=== PATIENT | female | born 1975 | race Caucasian/White ===

== ENCOUNTER → 2017-04-06 | Outpatient (CLI) | payer MEDICAID ==
[~2017-04-06] MED LIST: AC325T PO; ACYC200C PO; ALBU17AE23 IH; ALPR0.5T7; ASP325TEC PO; CIPR500S2 PO; CITA20TA7; CPR500T PO; IBP800T PO; LISI-556; LORA10CA PO; METF500T61 PO; METF500T8; MONT10TA21 PO; MTF500T; MTF500T PO; NAPR-243 PO; OSLT75C PO; PANT40SU PO; PRD20T PO; PROAIR; SIMV5TAB6
[2017-04-06 11:31] LABS: MEAN PLATELET VOLUME 10.9 FL (7.4-10.4); RED BLOOD COUNT 4.76 10^6/uL (4.35-5.85); RED CELL DISTRIBUTION WIDTH 13.6 % (10.0-14.5); WHITE BLOOD COUNT 14.6 10^3/uL (4.3-11.0)
[2017-04-06 11:53] LABS: ALANINE AMINOTRANSFERASE 12 U/L (0-55); ALBUMIN 3.9 GM/DL (3.2-4.5); ANION GAP 8 MMOL/L (5-14); ASPARTATE AMINO TRANSFERASE 12 U/L (5-34); BILIRUBIN,TOTAL 0.4 MG/DL (0.1-1.0); BLOOD UREA NITROGEN 13 MG/DL (7-18); BUN/CREATININE RATIO 19; CALCIUM 8.9 MG/DL (8.5-10.1); CARBON DIOXIDE 25 MMOL/L (21-32); CHLORIDE 107 MMOL/L (98-107); CHOLESTEROL 194 MG/DL (< 200); CREATININE SERUM 0.69 MG/DL (0.60-1.30); DIRECT LDL 119 MG/DL (1-129); GFR ESTIMATED > 60; GLUCOSE 143 MG/DL (70-105); HEMOLYSIS 13 (-100-29); ICTERUS 0.4 (-100-1.9); LIPEMIA 6 (-100-49); POTASSIUM 4.1 MMOL/L (3.6-5.0); SODIUM 140 MMOL/L (135-145); TOTAL PROTEIN 6.7 GM/DL (6.4-8.2); TRIGLYCERIDES 208 MG/DL (<150); VLDL CHOLESTEROL 42 MG/DL (5-40)
[2017-04-06 11:58] LABS: TROPONIN I < 0.30 NG/ML (<0.30)
== END ==
LOC: LAB 11:12
PROVIDERS: ATTEND Family Medicine
DX: R07.89 Other chest pain (principal); J45.909 Unspecified asthma, uncomplicated
CPT/HCPCS: 36415; 80053; 80061; 83036; 84484; 85027

== ENCOUNTER 2019-01-05 13:35 | Emergency (ER) | payer MEDICAID ==
[~2019-01-05] VITALS: Ht 182.9 cm; Wt 138.8 kg
[~2019-01-05 13:35] MED LIST changes: -CITA20TA7; +CITA20TA9
[2019-01-05 14:05] LABS: CLARITY,URINE CLEAR; COLOR,URINE YELLOW; GLUCOSE, URINE (UA) 1+ (NEGATIVE); KETONES,URINE 1+ (NEGATIVE); LEUKOCYTE ESTERASE ,URINE 1+ (NEGATIVE); NITRITE,URINE NEGATIVE (NEGATIVE); PH,URINE 5 (5-9); PROTEIN,URINE 3+ (NEGATIVE); UROBILINOGEN,URINE 4 MG/DL (NORMAL)
[2019-01-05] MEDS ORDERED: NS IV 1000 ML 1,000 ML IV ONE (14:05)
[2019-01-05 14:14] LABS: BACTERIA,URINE NEGATIVE /HPF; BILIRUBIN,URINE 1+ (NEGATIVE); RBC,URINE 25-50 /HPF; SQUAMOUS EPITHELIAL CELL,UR 0-2 /HPF; WBC,URINE RARE /HPF
[2019-01-05] MEDS ORDERED: KETOROLAC 30 MG/ML VIAL IVP ONE (14:15)
[2019-01-05] MEDS ORDERED: ONDANSETRON 4 MG/2 ML (SDV) Z0FRAN IVP ONE (14:15)
--- NOTE | 2019-01-05 14:16 | ED GU-Female ---
General Chief Complaint: - Urinary Stated Complaint: LOWER BACK PAIN Nursing Triage Note: PT AMB TO TRIAGE WITH COMPLAINT OF RIGHT LOW BACK PAIN, BURBING/PAIN ON URINATION, AND BLOOD IN URINE. STATES SHE WOKE UP WITH SYMPTOMS THIS MORNING. Nursing Sepsis Screen: No Definite Risk Source: patient Exam Limitations: no limitations History of Present Illness Date Seen by Provider: Jan 05, 2019 Time Seen by Provider: 13:58 Initial Comments This 43-year-old woman presents to the emergency room with complaints of right flank and mid back pain that started early this morning. The pain is rather intense and she is vomiting with it. She also notes blood in her urine today. Initially she thought this was related to emotional distress as her mother yesterday. However, symptoms became more severe and she decided to present to the emergency room. She took Tylenol this morning without much benefit. She has no history of kidney stones. She reports a sense of urinary urgency but then cannot urinate. Allergies and Home Medications Allergies Coded Allergies: No Known Allergies (Verified Allergy, Unknown, 06/25/06) No Known Drug Allergies (Unverified , 04/22/09) Home Medications Albuterol 17 Gm Aerosol, 2 PUFF IH QID, (Reported) AND EVERY 2 HOURS IF NEEDED Cephalexin 500 Mg Capsule, 500 MG PO TID Prescribed by: YRN HUDSON on 01/05/19 1539 Hydrocodone/Acetaminophen 1 Each Tablet, 1-2 TAB PO Q6H Prescribed by: YRN HUSDON on 01/05/19 1538 Loratadine 10 Mg Capsule, 10 MG PO DAILY, (Reported) Montelukast Sodium 10 Mg Tablet, 10 MG PO DAILY, (Reported) Ondansetron 4 Mg Tab.rapdis, 4 MG SL Q4H Prescribed by: YRN HUDSON on 01/05/19 1538 Patient Home Medication List Home Medication List Reviewed: Yes Review of Systems Review of Systems Constitutional: no symptoms reported EENTM: no symptoms reported Respiratory: no symptoms reported Cardiovascular: no symptoms reported Gastrointestinal: see HPI Genitourinary: see HPI : No Musculoskeletal: see HPI Skin: no symptoms reported Psychiatric/Neurological: No Symptoms Reported Endocrine: No Symptoms Reported Hematologic/Lymphatic: No Symptoms Reported Past Rxxkdvu-Fluxjc-Swapoq Hx Past Med/Social Hx: Reviewed and Corrections made Patient Social History Alcohol Use: Denies Use Recreational Drug Use: No Smoking Status: Current Everyday Smoker Type Used: Cigars Recent Foreign Travel: No Contact w/Someone Who Travel: No Recent Infectious Disease Expo: No Recent Hopitalizations: No Immunizations Up To Date Tetanus Booster (TDap): More than 5yrs Past Medical History Surgeries: Yes (shoulder surgery, tonsillectomy, gallbladder removed, appendectomy, 2c-s) Adenoidectomy, Section, Gallbladder, Orthopedic, Tonsillectomy, Tubal Ligation Respiratory: Yes Asthma Cardiac: Yes (WAS TRIED TO BE PRESCRIBED LISINOPRIL R/T DIABETES) Neurological: No : No Reproductive Disorders: Yes Gastrointestinal: No Musculoskeletal: No Endocrine: Yes (DM TYPE II) Diabetes, Non-Insulin dep HEENT: No Cancer: No Psychosocial: No Integumentary: No Blood Disorders: No Family Medical History No Pertinent Family Hx Physical Exam Vital Signs Vital Signs - First Documented 01/05/19 13:45 Pulse 85 Resp 20 B/P (MAP) 148/100 (116) Pulse Ox 97 O2 Delivery Room Air Capillary Refill : Less Than 3 Seconds Height, Weight, BMI Height: 6'0" Weight: 306lbs. oz. 138.237868bu; BMI Method:Stated General Appearance: WD/WN, mild distress HEENT: normal ENT inspection, pharynx normal Neck: normal inspection Cardiovascular: regular rate, rhythm, no edema, no murmur Respiratory: lungs clear, normal breath sounds, no respiratory distress Gastrointestinal: non tender, soft, no organomegaly Back: normal inspection, CVA tenderness (R) Extremities: normal inspection Neurologic/Psychiatric: vp lab II-XII nml as tested, no motor/sensory deficits, alert, normal mood/affect, oriented x 3 Skin: normal color, warm/dry Progress/Results/Core Measures Suspected Sepsis Recent Fever Within 48 Hours: No Infection Criteria Present: None New/Unexplained Altered Menta: No Sepsis Screen: No Definite Risk SIRS Temperature: Pulse: 85 Respiratory Rate: 20 Laboratory Tests 01/05/19 13:53: White Blood Count 17.1H Blood Pressure 148 /100 Mean: 116 Laboratory Tests 01/05/19 13:53: Creatinine 0.94, Platelet Count 299, Total Bilirubin 0.7 Results/Orders Lab Results Laboratory Tests Test 01/05/19 13:53 01/05/19 13:55 Range/Units White Blood Count 17.1 H 4.3-11.0 10^3/uL Red Blood Count 4.85 4.35-5.85 10^6/uL Hemoglobin 14.8 11.5-16.0 G/DL Hematocrit 43 35-52 % Mean Corpuscular Volume 89 80-99 FL Mean Corpuscular Hemoglobin 31 25-34 PG Mean Corpuscular Hemoglobin Concent 34 32-36 G/DL Red Cell Distribution Width 14.0 10.0-14.5 % Platelet Count 299 130-400 10^3/uL Mean Platelet Volume 11.8 H 7.4-10.4 FL Neutrophils (%) (Auto) 80 H 42-75 % Lymphocytes (%) (Auto) 11 L 12-44 % Monocytes (%) (Auto) 8 0-12 % Eosinophils (%) (Auto) 1 0-10 % Basophils (%) (Auto) 1 0-10 % Neutrophils # (Auto) 13.7 H 1.8-7.8 X 10^3 Lymphocytes # (Auto) 1.8 1.0-4.0 X 10^3 Monocytes # (Auto) 1.3 H 0.0-1.0 X 10^3 Eosinophils # (Auto) 0.2 0.0-0.3 10^3/uL Basophils # (Auto) 0.1 0.0-0.1 10^3/uL Sodium Level 138 135-145 MMOL/L Potassium Level 4.4 3.6-5.0 MMOL/L Chloride Level 106 98-107 MMOL/L Carbon Dioxide Level 22 21-32 MMOL/L Anion Gap 10 5-14 MMOL/L Blood Urea Nitrogen 16 7-18 MG/DL Creatinine 0.94 0.60-1.30 MG/DL Estimat Glomerular Filtration Rate > 60 BUN/Creatinine Ratio 17 Glucose Level 217 H 70-105 MG/DL Calcium Level 9.8 8.5-10.1 MG/DL Corrected Calcium 9.5 8.5-10.1 MG/DL Total Bilirubin 0.7 0.1-1.0 MG/DL Aspartate Amino Transf (AST/SGOT) 22 5-34 U/L Alanine Aminotransferase (ALT/SGPT) 21 0-55 U/L Alkaline Phosphatase 100 40-136 U/L Total Protein 7.6 6.4-8.2 GM/DL Albumin 4.4 3.2-4.5 GM/DL Urine Color YELLOW Urine Clarity CLEAR Urine pH 5 5-9 Urine Specific [place] 1.030 H 1.016-1.022 Urine Protein 3+ H NEGATIVE Urine Glucose (UA) 1+ H NEGATIVE Urine Ketones 1+ H NEGATIVE Urine Nitrite NEGATIVE NEGATIVE Urine Bilirubin 1+ H NEGATIVE Urine Urobilinogen 4 H NORMAL MG/DL Urine Leukocyte Esterase 1+ H NEGATIVE Urine RBC (Auto) 5+ H NEGATIVE Urine RBC 25-50 H /HPF Urine WBC RARE /HPF Urine Squamous Epithelial Cells 0-2 /HPF Urine Crystals NONE /LPF Urine Bacteria NEGATIVE /HPF Urine Casts NONE /LPF Urine Mucus NEGATIVE /LPF Urine Culture Indicated NO My Orders Orders - YRN CASTILLO MD Ua Culture If Indicated (01/05/19 13:58) Saline Lock/Iv-Start (01/05/19 14:05) Ns Iv 1000 Ml (Sodium Chloride 0.9%) (01/05/19 14:05) Ketorolac Injection (Toradol Injection) (01/05/19 14:15) Ondansetron Injection (Zofran Injectio (01/05/19 14:15) Ct Abd/Pelvis Wo(Kidney Stone) (01/05/19 14:17) Cbc With Automated Diff (01/05/19 15:14) Comprehensive Metabolic Panel (01/05/19 15:14) Abdomen/Kub 1view (01/05/19 15:14) Manual Differential (01/05/19 13:53) Medications Given in ED Current Medications Medications Dose Ordered Sig/Zenaida Route Start Time Stop Time Status Last Admin Dose Admin Ketorolac Tromethamine 30 mg ONCE ONCE IVP 01/05/19 14:15 01/05/19 14:16 DC 01/05/19 14:14 30 MG Ondansetron HCl 8 mg ONCE ONCE IVP 01/05/19 14:15 01/05/19 14:16 DC 01/05/19 14:14 8 MG Sodium Chloride 1,000 ml @ 0 mls/hr Q0M ONCE IV 01/05/19 14:05 01/05/19 14:06 DC 01/05/19 14:14 1,000 MLS/HR Vital Signs/I&O 01/05/19 01/05/19 13:45 15:50 Pulse 85 85 Resp 20 20 B/P (MAP) 148/100 (116) 147/99 (115) Pulse Ox 97 99 O2 Delivery Room Air Room Air Capillary Refill : Less Than 3 Seconds Blood Pressure Mean: 116 Progress Note : Progress Note Patient was seen and examined. She was hydrated with IV normal saline. Symptoms were controlled with Toradol and Zofran. Hematuria was noted on urinalysis. CT was obtained showing a right ureteral calculus about 6 mm in size. Case was discussed with Dr. Birmingham and an appointment for Wednesday at 1:30 was made. She is to get a KUB before that appointment. An order for that was given. Prescriptions were provided. Patient was dismissed in much improved condition. Diagnostic Imaging Diagonstic Imaging: CT Plain Films/CT/US/NM/MRI: abdomen, pelvis Comments CT abdomen and pelvis viewed by me and report reviewed. See report below: NAME: EMPERATRIZ ESPARZA [facility] REC#: [id number] PT STATUS: REG ER : 1975 PHYSICIAN: YRN CASTILLO MD ADMIT DATE: 01/05/19/ER Draft Date of Exam:01/05/19 CT ABD/PELVIS WO(KIDNEY STONE) PROCEDURE: CT urinary tract, rule out kidney stone. TECHNIQUE: Multiple contiguous axial images were obtained through the abdomen and pelvis without the use of intravenous contrast. Auto Exposure Controls were utilized during the CT exam to meet ALARA standards for radiation dose reduction. INDICATION: Right flank pain and hematuria. No prior studies are available for comparison. The lung bases are clear. The liver is unremarkable. Gallbladder appears to be surgically absent. No biliary ductal dilatation is identified. The pancreas and spleen are unremarkable. No adrenal mass is identified. The left kidney is unremarkable. The right kidney is enlarged. Moderate right-sided hydroureteronephrosis is identified. The dilated right ureter is traced into the pelvis where there is a 6 mm calculus located at the UVJ. Moderate perinephric inflammatory stranding on the right is also seen. No intrarenal calculi are detected. The aorta is non-aneurysmal. The small and large bowel loops are normal caliber. There is no ascites. Bladder is decompressed. Uterus is unremarkable. Bony structures are nonacute. IMPRESSION: 6 mm right UVJ calculus producing moderate hydroureteronephrosis with right renal enlargement and perinephric inflammatory stranding. Dictated on workstation # [id number] Dict: 01/05/19 1440 Trans: 01/05/19 1444 [facility] [id number] Interpreted by: LETICIA SWANSON MD Diagonstic Imaging: Xray Plain Films/CT/US/NM/MRI: abdomen, pelvis Comments Abdominal x-ray viewed by me and report reviewed. See report below: NAME: EMPERATRIZ ESPARZA MED REC#: [id number] PT STATUS: REG ER : 1975 PHYSICIAN: YRN CASTILLO MD ADMIT DATE: 01/05/19/ER Signed Date of Exam: 01/05/19 ABDOMEN/KUB 1VIEW INDICATION: Kidney stone. TIME OF EXAM: 03:22 p.m. COMPARISON: Correlation is made with CT study from earlier the same day. FINDINGS: Numerous calcific densities are identified in the pelvis, majority of which represent phleboliths. The calcific density noted at the right UVJ on recent CT is visualized. This may actually indeed represent two adjacent calculi as opposed to a single 6 mm calculus, this appears to represent two approximately 3 mm calculi adjacent to one another. No other definite urinary tract calculi are seen. Bowel gas pattern is unremarkable. There are surgical clips in the right upper quadrant as well as the pelvis. IMPRESSION: Distal right ureteric calculi, as described each measuring approximately 3 mm in size and corresponding with the CT findings earlier the same day. Dictated by: Dictated on workstation # [id number] Dict: 01/05/19 1530 Trans: 01/05/19 1542 Interpreted by: LETICIA SWANSON MD Electronically signed by: LETICIA SWANSON MD 01/05/19 1542 Departure Impression Primary Impression: Right ureteral stone Additional Impressions: Hydronephrosis, right Nausea and vomiting Qualified Codes: R11.2 - Nausea with vomiting, unspecified Disposition: 01 HOME, SELF-CARE Condition: Improved Departure-Patient Inst. Decision time for Depature: 15:35 Referrals: JULI RINALDI DO (PCP/Family) Primary Care Physician ALEJA BIRMINGHAM MD Patient Instructions: Kidney Stones in Adults Add. Discharge Instructions: Drink plenty of clear liquids. Use your pain medication as prescribed. Use your nausea medication as prescribed. You have an appointment with Dr. Birmingham on January 09 at 1:30. Please obtain an abdominal x-ray at the hospital on January 09 before 12:30 so that it may be viewed at your appointment. Return to the emergency room if you are having any further problems or concerns or if your symptoms are uncontrolled. All discharge instructions reviewed with patient and/or family. Voiced understanding. Scripts Cephalexin (Keflex) 500 Mg Capsule 500 MG PO TID, #30 CAP Prov: YRN CASTILLO MD 01/05/19 Ondansetron (Ondansetron Odt) 4 Mg Tab.rapdis 4 MG SL Q4H, #20 TAB Prov: YRN CASTILLO MD 01/05/19 Hydrocodone/Acetaminophen (Hydrocodone-Acetamin 5-325 mg) 1 Each Tablet 1-2 TAB PO Q6H for PAIN-MODERATE MDD 10, #40 TAB Prov: YRN CASTILLO MD 01/05/19 Copy Copies To 1: ALEJA BIRMINGHAM MD, JOSHUA T MD Jan 05, 2019 14:16
--- NOTE | 2019-01-05 14:45 | Diagnostic Imaging Report ---
PROCEDURE: CT urinary tract, rule out kidney stone. TECHNIQUE: Multiple contiguous axial images were obtained through the abdomen and pelvis without the use of intravenous contrast. Auto Exposure Controls were utilized during the CT exam to meet ALARA standards for radiation dose reduction. INDICATION: Right flank pain and hematuria. No prior studies are available for comparison. The lung bases are clear. The liver is unremarkable. Gallbladder appears to be surgically absent. No biliary ductal dilatation is identified. The pancreas and spleen are unremarkable. No adrenal mass is identified. The left kidney is unremarkable. The right kidney is enlarged. Moderate right-sided hydroureteronephrosis is identified. The dilated right ureter is traced into the pelvis where there is a 6 mm calculus located at the UVJ. Moderate perinephric inflammatory stranding on the right is also seen. No intrarenal calculi are detected. The aorta is non-aneurysmal. The small and large bowel loops are normal caliber. There is no ascites. Bladder is decompressed. Uterus is unremarkable. Bony structures are nonacute. IMPRESSION: 6 mm right UVJ calculus producing moderate hydroureteronephrosis with right renal enlargement and perinephric inflammatory stranding. Dictated by: Dictated on workstation # [id number]
[2019-01-05 15:29] LABS: BASOPHILS # (AUTO) 0.1 10^3/uL (0.0-0.1); BASOPHILS % (AUTO) 1 % (0-10); EOSINOPHILS # (AUTO) 0.2 10^3/uL (0.0-0.3); EOSINOPHILS % (AUTO) 1 % (0-10); HEMATOCRIT 43 % (35-52); HEMOGLOBIN 14.8 G/DL (11.5-16.0); LYMPHOCYTES # (AUTO) 1.8 X 10^3 (1.0-4.0); LYMPHOCYTES % (AUTO) 11 % (12-44); MEAN CORPUSCULAR HEMOGLOBIN 31 PG (25-34); MEAN CORPUSCULAR HGB CONC 34 G/DL (32-36); MEAN CORPUSCULAR VOLUME 89 FL (80-99); MEAN PLATELET VOLUME 11.8 FL (7.4-10.4); MONOCYTES # (AUTO) 1.3 X 10^3 (0.0-1.0); MONOCYTES % (AUTO) 8 % (0-12); NEUTROPHILS # (AUTO) 13.7 X 10^3 (1.8-7.8); NEUTROPHILS % (AUTO) 80 % (42-75); PLATELET COUNT 299 10^3/uL (130-400); WHITE BLOOD COUNT 17.1 10^3/uL (4.3-11.0)
[2019-01-05] MEDS ORDERED: ONDA4TAB11 SL (15:38)
[2019-01-05] MEDS ORDERED: HYDR-3812 PO (15:38)
--- NOTE | 2019-01-05 15:38 | Diagnostic Imaging Report ---
INDICATION: Kidney stone. TIME OF EXAM: 03:22 p.m. COMPARISON: Correlation is made with CT study from earlier the same day. FINDINGS: Numerous calcific densities are identified in the pelvis, majority of which represent phleboliths. The calcific density noted at the right UVJ on recent CT is visualized. This may actually indeed represent two adjacent calculi as opposed to a single 6 mm calculus, this appears to represent two approximately 3 mm calculi adjacent to one another. No other definite urinary tract calculi are seen. Bowel gas pattern is unremarkable. There are surgical clips in the right upper quadrant as well as the pelvis. IMPRESSION: Distal right ureteric calculi, as described each measuring approximately 3 mm in size and corresponding with the CT findings earlier the same day. Dictated by: Dictated on workstation # [id number]
[2019-01-05] MEDS ORDERED: CEPH-507 PO (15:39)
[2019-01-05 15:41] LABS: ALANINE AMINOTRANSFERASE 21 U/L (0-55); ALBUMIN 4.4 GM/DL (3.2-4.5); ALKALINE PHOSPHATASE 100 U/L (40-136); BILIRUBIN,TOTAL 0.7 MG/DL (0.1-1.0); BUN/CREATININE RATIO 17; CALCIUM 9.8 MG/DL (8.5-10.1); CARBON DIOXIDE 22 MMOL/L (21-32); CHLORIDE 106 MMOL/L (98-107); CREATININE SERUM 0.94 MG/DL (0.60-1.30); GFR ESTIMATED > 60; GLUCOSE 217 MG/DL (70-105); POTASSIUM 4.4 MMOL/L (3.6-5.0); SODIUM 138 MMOL/L (135-145); TOTAL PROTEIN 7.6 GM/DL (6.4-8.2)
[2019-01-05 15:50] VITALS: BP 147/99
[2019-01-05 16:05] LABS: BAND NEUTROPHILS 0 %; BASOPHILS % (MANUAL) 0 %; EOSINOPHILS % (MANUAL) 0 %; LYMPHOCYTES % (MANUAL) 10 %; MONOCYTES % (MANUAL) 7 %; NEUTROPHILS % (MANUAL) 83 %; RBC MORPH NORMAL
== END 2019-01-05 15:50 | disposition home or self-care (01) ==
LOC: EDUNIT# 13:35 → ER 13:36
DX: N13.2 Hydronephrosis with renal and ureteral calculous obstruction (principal); R11.2 Nausea with vomiting, unspecified; J45.909 Unspecified asthma, uncomplicated; E11.9 Type 2 diabetes mellitus without complications; F17.290 Nicotine dependence, other tobacco product, uncomplicated; Z90.89 Acquired absence of other organs; Z90.49 Acquired absence of other specified parts of digestive tract; Z98.51 Tubal ligation status
CPT/HCPCS: 36415; 74018; 74176; 80053; 81000; 85007; 85027

== ENCOUNTER → 2019-01-09 | Outpatient (CLI) | payer MEDICAID ==
[~2019-01-09] MED LIST changes: +CEPH-507 PO; +HYDR-3812 PO; +LISI10TA2 PO; +METF-397 PO; +NITR-65 PO; +ONDA4TAB11 SL; +PHEN-640 PO; +RT-ALBUINH IH; +TAMS0.4C98 PO; +TRAM50TA2 PO
--- NOTE | 2019-01-09 14:52 | Diagnostic Imaging Report ---
INDICATION: Ureteral stone. TECHNIQUE: 2 supine view of the abdomen 12:33 PM CORRELATION STUDY: 01/05/2019 FINDINGS: Multiple calcifications of the pelvis are again demonstrated. This does include approximately 8 mm in length calcification of the right hemipelvis. This does appear to be slightly less dense and perhaps slightly more expanded compared to prior imaging. Location is relatively stable. Clips within the pelvis. Findings compatible with tampon present. Bowel gas pattern nonobstructive with few gas loops of bowel, may reflect mild ileus. IMPRESSION: 1. Calcification of the right hemipelvis does appear to be perhaps slightly less dense and may be slightly more fragmented from prior study. Positioning, however, is generally stable. Dictated by: Dictated on workstation # [id number]
== END ==
LOC: RAD 12:19
PROVIDERS: ATTEND Family Medicine
DX: N20.1 Calculus of ureter (principal)
CPT/HCPCS: 74018

== ENCOUNTER 2019-01-10 11:32 | Outpatient (CLI) | payer MEDICAID ==
[~2019-01-10] VITALS: Ht 182.9 cm; Wt 137.4 kg
[~2019-01-10 11:32] MED LIST changes: -LISI10TA2 PO; -METF-397 PO; -NITR-65 PO; -PHEN-640 PO; -RT-ALBUINH IH; -TAMS0.4C98 PO; -TRAM50TA2 PO
[2019-01-10 11:43] VITALS: BP 152/98
[2019-01-10] MEDS ORDERED: METF-397 PO (11:48)
[2019-01-10] MEDS ORDERED: RT-ALBUINH IH (11:48)
[2019-01-10] MEDS ORDERED: LISI10TA2 PO (11:48)
[2019-01-10 12:45] LABS: BUN/CREATININE RATIO 17; CARBON DIOXIDE 24 MMOL/L (21-32); CHLORIDE 107 MMOL/L (98-107); CREATININE SERUM 0.65 MG/DL (0.60-1.30); GFR ESTIMATED > 60; GLUCOSE 134 MG/DL (70-105); PHOSPHORUS 3.3 MG/DL (2.3-4.7); POTASSIUM 3.8 MMOL/L (3.6-5.0); SODIUM 142 MMOL/L (135-145); URIC ACID 5.4 MG/DL (2.6-7.2)
[2019-01-11] MEDS ORDERED: TRAM50TA2 PO (08:34)
[2019-01-11] MEDS ORDERED: TAMS0.4C98 PO (08:34)
[2019-01-11] MEDS ORDERED: PHEN-640 PO (08:34)
[2019-01-11] MEDS ORDERED: NITR-65 PO (08:34)
== END 2019-01-10 12:20 | disposition home or self-care (01) ==
LOC: PREOP 11:32
PROVIDERS: ATTEND Urology
DX: Z01.812 Encounter for preprocedural laboratory examination (principal); N20.1 Calculus of ureter
CPT/HCPCS: 36415; 80048; 83970; 84100; 84550; 84703; 87081

== ENCOUNTER → 2019-01-10 | Outpatient (CLI) | payer MEDICAID ==
--- NOTE | 2019-01-10 14:28 | Diagnostic Imaging Report ---
INDICATION: Right renal stone. TECHNIQUE: Single supine view of the abdomen 8:40 AM CORRELATION STUDY: 01/09/2019 FINDINGS: Multiple calcifications within the bilateral hemipelvis again demonstrated likely large phleboliths. The previously questioned area of calcification at the expected location distal right ureter is not appreciably unchanged in position and/or its appearance. Findings compatible with a tampon remaining in place. Surgical clips within the pelvis. IMPRESSION: 1. Multiple calcification in the pelvis overall generally stable. This includes the area in question of a potential distal right ureteral stone. Dictated by: Dictated on workstation # [id number]
== END ==
LOC: RAD 08:14
PROVIDERS: ATTEND Family Medicine
DX: N20.0 Calculus of kidney (principal); Z98.890 Other specified postprocedural states
CPT/HCPCS: 74018

== ENCOUNTER 2019-01-11 06:25 | Day surgery (SDC) | payer MEDICAID ==
[~2019-01-11] VITALS: Ht 182.9 cm; Wt 138.8 kg
[~2019-01-11 06:25] MED LIST changes: +LISI10TA2 PO; +METF-397 PO; +RT-ALBUINH IH
--- OUTSIDE RECORDS SUMMARY | 2019-01-11 06:32 | XMS REPORT ---
Author Author MONTANA BROWN Organization [employer] Address Unknown Phone Unavailable Care Team Providers Care Lever Operator Name Role Phone MONTANA BROWN CP Unavailable Allergies No Known Allergies Problems Problem Type Condition Code Onset Dates Condition Status Problem Major depressive disorder, recurrent episode, moderate 296.32 Active Problem Depressive disorder, not elsewhere classified 311 Active Problem Generalized anxiety disorder 300.02 Active Medications Medication Code System Code Instructions Start Date End Date Status Dosage Alprazolam [facility] [address]-00 0.5 MG Orally TAKE ONE TABLET BY MOUTH THREE TIMES DAILY NEEDED Results No Known Results Summary Purpose [employer] Submission
--- OUTSIDE RECORDS SUMMARY | 2019-01-11 06:32 | XMS REPORT ---
Author Author Migration, Doctor Organization [facility] Address Unknown Phone Unavailable Care Team Providers Care Document Coordinator Name Role Phone Migration, Doctor Unavailable Unavailable PROBLEMS Type Condition ICD9-CM Code CUN60-ZY Code Onset Dates Condition Status SNOMED Code Problem Generalized anxiety disorder F41.1 Active 33341642 Problem Major depressive disorder, recurrent, moderate F33.1 Active 76400248 Problem Depressive disorder, not elsewhere classified 311 Active 36029181 Problem Generalized anxiety disorder 300.02 Active 55089611 Problem Major depressive disorder, recurrent episode, moderate 296.32 Active 75449613 ALLERGIES No Information ENCOUNTERS Encounter Location Date Diagnosis [facility] [id number] [place] [id number] Oct, Encounter for dental examination Z01.20 [facility] [id number] [place] [address] 47404- 3769 Jan, [facility] [id number] [place] [address] 30855- 2632 Sep, Major depressive disorder, recurrent, moderate F33.1 and Generalized anxiety disorder F41.1 [facility] [id number] [place] [address] 84741- 8627 Jun, [facility] [id number] [place] [address] 25267- 5590 May, [facility] [id number] [place] [address] 88555- 8056 Apr, [facility] [id number] [place] [address] 93447- 7266 Mar, [facility] [id number] [place] [address] 59069- 6594 February, [facility] [id number] [place] [address] 64379- 2133 Jan, [facility] [id number] [address] Jan, 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 and Major depressive disorder , recurrent, moderate F33.1 [facility] [id number] [id number] 14 Jan, 2016 [facility] [id number] [place] [address] [phone]- 6930 Dec, [facility] [address] [address] 0361 Nov, [facility] [id number] [place] [address] 15901- 0373 Sep, [facility] [id number] [place] [address] 605813- 6536 Jul, [facility] [id number] [place] [address] 99757- 1574 Jun, Major depressive disorder, recurrent episode, moderate 296.32 and Generalized anxiety disorder 300.02 [facility] [address] [address] 5969 May, [facility] [address] [address] 0347 Apr, [facility] [address] [address] 4071 Mar, [facility] [address] [address] [address] February, Generalized anxiety disorder 300.02 and Major depressive disorder, recurrent episode, moderate 296.32 [facility] [address] [address] 6995 February, [facility] [address] 50[address] Jan, [facility] [address] [address] 8723 Jan, [facility] [place] [facility] [address] [id number] [place] [address] 6939 Nov, [facility] [place] [facility] [address] [id number] [place] [address] Nov, 2014 [facility] [place] [facility] [address] [id number] [place] [address]- 9421 Nov, [facility] [place] [facility] [address] [id number] [place] [address]- 6634 Nov, [facility] [place] [facility] [address] [id number] [place] [address]- 3444 Sep, [facility] [place] [facility] [address] [id number] [place] [address]- 0317 Sep, [facility] [place] [facility] [address] [id number] [place] [address]- 0159 Aug, [facility] [place] [facility] [address] [id number] [place] [address]- 3579 Aug, [facility] [place] [facility] [address] [id number] [place] [address]- 2456 Jul, [facility] [place] [facility] [address] [facility] [id number] [place] [address]- 6603 Jul, [facility] [place] [facility] [address] [id number] [place] [address]- 7554 Jun, [facility] [place] [facility] [address] [id number] [address] 9816 Jun, [facility] [place] [facility] [address] [id number] [place] [address]- 7982 May, [facility] [place] [facility] [address] [id number] [place] [address]- 5227 May, [facility] [place] [facility] [address] [facility] [id number] [place] [address]- 1775 Mar, [facility] [place] [facility] [address] [id number] [place] [address]- 5051 Mar, [facility] [place] [facility] [address] [id number] [place] [address]- 6472 Mar, [facility] [place] [facility] [address] [id number] [place] [address]- 5816 Mar, [facility] [place] [facility] [address] [id number] [place] [address]- 0086 Jan, [facility] [place] [facility] [address] [id number] [place] [address]- 3650 Jan, [facility] [place] [facility] [address] [id number] [place] [address]- 5084 Jan, [facility] [place] [facility] [address] [id number] [place] [address]- 9377 Jan, [facility] [place] [facility] [address] [id number] [place] [address]- 3580 Dec, [facility] [place] [facility] [address] [id number] [place] [address]- 3945 Dec, [facility] [place] [facility] [address] [id number] [place] [address]- 1030 Dec, [facility] [place] [facility] [address] [id number] [place] [address]- 0596 Dec, [facility] [place] [facility] [address] [id number] [place] [address]- 9497 Oct, [facility] [place] [facility] [address] [id number] [place] [address]- 4032 Oct, [facility] [place] [facility] [address] [id number] [place] [address]- 7363 Oct, [facility] [place] [facility] [address] [id number] [place] [address]- 4409 Oct, [facility] [place] [facility] [address] [id number] [place] [address]- 6812 Aug, [facility] [address] [facility] [id number] [place] [address]- 67[address] Aug, IMMUNIZATIONS No Known Immunizations SOCIAL HISTORY Never Assessed REASON FOR VISIT [facility] PLAN OF CARE VITAL SIGNS MEDICATIONS Medication Instructions Dosage Frequency Start Date End Date Duration Status Singulair 10 mg 1 Tablet by Oral route 1 time per day for asthma Nov Active Celexa 20 mg 1 tablet by Oral route 1 time per day Nov, Active Albuterol by inhalation route Oct, Active Claritin 10 mg 1 Tablet by Oral route 1 time per day for allergies Nov, Active metformin 500 mg 1 Tablet by Oral route 1 time per day Oct, Active Xanax 0.5 mg 1 tablet by Oral route 3 times per day Nov, Active RESULTS No Results PROCEDURES No Known procedures INSTRUCTIONS MEDICATIONS ADMINISTERED No Known Medications MEDICAL (GENERAL) HISTORY Type Description Date Medical History High BP Medical History Asthma Medical History Diabetes II Medical History Back Trouble Surgical History gall bladder removal Surgical History Right rotator cuff Surgical History T & A Surgical History C-sections x 2 Hospitalization History Surgery/child
--- OUTSIDE RECORDS SUMMARY | 2019-01-11 06:32 | XMS REPORT ---
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
--- OUTSIDE RECORDS SUMMARY | 2019-01-11 06:32 | XMS REPORT ---
Author Author FRANCI PETERSEN [facility] Address Unknown Care Team Providers Care Tail Puller Name Role Phone FRANCI PETERSEN Unavailable PROBLEMS Type Condition ICD9-CM Code TNL51-BG Code Onset Dates Condition Status SNOMED Code Problem Generalized anxiety disorder 300.02 Active 18139725 Problem Major depressive disorder, recurrent episode, moderate 296.32 Active 75875718 Problem Depressive disorder, not elsewhere classified 311 Active 21830015 ALLERGIES Unknown Allergies SOCIAL HISTORY No smoking Hx information available PLAN OF CARE VITAL SIGNS MEDICATIONS Medication Instructions Dosage Frequency Start Date End Date Duration Status Alprazolam 0.5 MG TAKE ONE TABLET BY MOUTH THREE TIMES DAILY NEEDED Active RESULTS No Results PROCEDURES No Known procedures IMMUNIZATIONS No Known Immunizations
--- OUTSIDE RECORDS SUMMARY | 2019-01-11 06:32 | XMS REPORT ---
Author Author TINO TODD Organization [facility] Address [address] [place] [address] Care Team Providers Care Rotor Coil Taper Name Role Phone TINO TODD Unavailable PROBLEMS Type Condition ICD9-CM Code [id number] Code Onset Dates Condition Status SNOMED Code Problem Major depressive disorder, recurrent, moderate F33.1 Active 27181848 Problem Generalized anxiety disorder F41.1 Active 94778397 Problem Depressive disorder, not elsewhere classified 311 Active 81229584 Problem Major depressive disorder, recurrent episode, moderate 296.32 Active 68878635 Problem Generalized anxiety disorder 300.02 Active 50122517 ALLERGIES No Known Allergies ENCOUNTERS Encounter Location Date Diagnosis [facility] [id number] [place] [address] [id number] Oct, Encounter for dental examination Z01.20 [facility] [id number] [place] [address] 09172- 7787 Jan, [facility] [id number] [place] [address] 73911- 5021 14 Sep, 2016 Major depressive disorder, recurrent, moderate F33.1 and Generalized anxiety disorder F41.1 [facility] [id number] [place] [address] 39426- 3329 Jun, [facility] [id number] [place] [address] 25004- 3188 May, [facility] [address] [address]- 1801 Apr, [facility] [id number] [place] [address] [id number]- 2363 Mar, [facility] [id number] [place] [address] 99314- 0895 February, [facility] [address] [address]- 3325 Jan, [facility] [address] Jan, 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 and Major depressive disorder , recurrent, moderate F33.1 [facility] [address] [address]- 3855 Jan, [facility] [address] [address] 9774 Dec, [facility] [address] [address]- 8127 Nov, [facility] [address] [address]- 1296 Sep, [facility] [id number] [address]- 3875 Jul, [facility] [address] [address]- 9251 Jun, Major depressive disorder, recurrent episode, moderate 296.32 and Generalized anxiety disorder 300.02 [facility] [address] [address]- 2676 May, [facility] [address] [address]- 7996 Apr, [facility] [address] [address]- 6100 Mar, [facility] [id number] 487[address] February, Generalized anxiety disorder 300.02 and Major depressive disorder, recurrent episode, moderate 296.32 [facility] [address] [address] 8026 February, [facility] [address] [id number] [address] 9945 Jan, [facility] [place] [facility] [address] [id number] [place] [address]- 4709 Jan, [facility] [place] [facility] [address] [id number] [place] [address]- 6146 Nov, [facility] [place] [facility] [address] [id number] [place] [address]- 6595 Nov, [facility] [place] [facility] [address] [id number] [place] [address]- 5246 Nov, [facility] [place] [facility] [address] [id number] [place] [address]- 0613 Nov, [facility] [place] [facility] [address] [id number] [place] [address]- 9241 Sep, [facility] [place] [facility] [address] [id number] [place] [address]- 2639 Sep, [facility] [place] [facility] [address] [id number] [place] [address]- 1659 Aug, [facility] [place] [facility] [address] [id number] [place] [address]- 1030 Aug, [facility] [place] [facility] [address] [id number] [place] [address]- 1401 Jul, [facility] [place] [facility] [address] [id number] [place] [address]- 8666 Jul, [facility] [place] [facility] [address] [id number] [place] [address]- 2429 Jun, [facility] [place] [facility] [address] [id number] [place] [address]- 0118 Jun, [facility] [place] [facility] [address] [id number] [place] [address]- 2509 May, [facility] [place] [facility] [address] [id number] [place] [address]- 9869 May, [facility] [place] [facility] [address] [id number] [place] [address]- 7464 Mar, [facility] [address] [id number] [place] [address]- 5193 Mar, [facility] [place] [facility] [address] [id number] [place] [address]- 3142 Mar, [facility] [address] [id number] [place] [address]- 3071 Mar, [facility] [place] [facility] [address] [id number] [place] [address]- 4292 Jan, [facility] [place] [facility] [address] [id number] [place] [address]- 7382 Jan, [facility] [place] [facility] [address] [id number] [place] [address]- 9103 Jan, [facility] [address] [id number] [place] [address]- 7972 Jan, [facility] [address] [id number] [place] [address]- 6405 Dec, [facility] [place] [facility] [address] [id number] [place] [address]- 4882 Dec, [facility] [address] [id number] [place] [address]- 9156 Dec, [facility] [place] [facility] [address] [id number] [place] [address]- 6097 Dec, [facility] [place] [facility] [address] [id number] [place] [address]- 3915 Oct, [facility] [place] [facility] [address] [id number] [place] [address]- 1044 Oct, [facility] [place] [facility] [address] [id number] [place] [address]- 8772 Oct, [facility] [place] [facility] [address] [id number] [place] [address]- 1016 Oct, [facility] [address] [facility] [id number] [place] [address]01 Aug, [facility] [address] [facility] [id number] [place] [address]- 9669 Aug, IMMUNIZATIONS No Known Immunizations SOCIAL HISTORY Never Assessed REASON FOR VISIT prophy PLAN OF CARE Activity Details Follow Up First Available Reason:SHAYY/SRP VITAL SIGNS Heart Rate 83 bpm 2017-10-25 Blood pressure systolic 127 mmHg 2017-10-25 Blood pressure diastolic 80 mmHg 2017-10-25 MEDICATIONS Medication Instructions Dosage Frequency Start Date End Date Duration Status metformin 500 mg orally 2 times a day 1 Tablet 12h Oct, Active Albuterol by inhalation route Oct, Active Claritin 10 mg 1 Tablet by Oral route 1 time per day for allergies Nov, Active Simvastatin 5 MG Orally Once a day 1 tablet in the evening 24h Active Singulair 10 mg 1 Tablet by Oral route 1 time per day for asthma Nov Active Celexa 20 mg Orally Once a day 1 tablet 24h 30 days Not-Taking Citalopram Hydrobromide 20 MG TAKE ONE TABLET BY MOUTH ONCE DAILY 30 Not-Taking Alprazolam 0.5 MG Orally Three times a day 1 tablet 8h 30 days Not- Taking Lisinopril 10 MG Orally Once a day 1 tablet 24h Active RESULTS No Results PROCEDURES Procedure Date Ordered Result Body Site INTRAORL-PERIAPICAL 1 FILM 95785 Oct 25, 2017 INTRAORL-PERIAPICAL EA ADD FILM Oct 25, 2017 BITEWINGS - FOUR FILMS Oct 25, 2017 INTRAORL-PERIAPICAL EA ADD FILM Oct 25, 2017 INTRAORL-PERIAPICAL EA ADD FILM Oct 25, 2017 INTRAORL-PERIAPICAL EA ADD FILM Oct 25, 2017 INTRAORL-PERIAPICAL EA ADD FILM Oct 25, 2017 INSTRUCTIONS MEDICATIONS ADMINISTERED No Known Medications MEDICAL (GENERAL) HISTORY Type Description Date Medical History High BP Medical History Asthma Medical History Diabetes II Medical History Back Trouble Surgical History gall bladder removal Surgical History Right rotator cuff Surgical History T & A Surgical History C-sections x 2 Hospitalization History Surgery/child
--- OUTSIDE RECORDS SUMMARY | 2019-01-11 06:32 | XMS REPORT ---
Author Author FRANCI PETERSEN Organization [employer] Address Unknown Phone Unavailable Care Team Providers Care Snailer Name Role Phone FRANCI PETERSEN CP Unavailable Allergies No Known Allergies Problems Problem Type Condition Code Onset Dates Condition Status Problem Major depressive disorder, recurrent episode, moderate 296.32 Active Problem Depressive disorder, not elsewhere classified 311 Active Problem Generalized anxiety disorder 300.02 Active Medications Medication Code System Code Instructions Start Date End Date Status Dosage Alprazolam [facility] [address]-89 0.5 MG TAKE ONE TABLET BY MOUTH THREE TIMES DAILY NEEDED Results No Known Results Summary Purpose [employer] Submission
--- OUTSIDE RECORDS SUMMARY | 2019-01-11 06:32 | XMS REPORT ---
Author Author MONTANA HERNANDEZ Organization [employer] Address Unknown Phone Unavailable Care Team Providers Care Bracelet Maker Novelty Name Role Phone MONTANA HERNANDEZ Unavailable Allergies No Known Allergies Problems Problem Type Condition Code Onset Dates Condition Status Problem Major depressive disorder, recurrent episode, moderate 296.32 Active Problem Depressive disorder, not elsewhere classified 311 Active Problem Generalized anxiety disorder 300.02 Active Medications Medication Code System Code Instructions Start Date End Date Status Dosage Alprazolam [facility] [address]-11 0.5 MG Orally. Must attend appt with for further refills TAKE ONE TABLET BY MOUTH THREE TIMES DAILY NEEDED Results No Known Results Summary Purpose [employer] Submission
--- OUTSIDE RECORDS SUMMARY | 2019-01-11 06:32 | XMS REPORT ---
Author Author FRANCI PETERSEN Organization [employer] Address Unknown Phone Unavailable Care Team Providers Care Name Role Phone FRANCI PETERSEN CP Unavailable Allergies No Known Allergies Problems Problem Type Condition Code Onset Dates Condition Status Problem Major depressive disorder, recurrent episode, moderate 296.32 Active Problem Depressive disorder, not elsewhere classified 311 Active Problem Generalized anxiety disorder 300.02 Active Medications Medication Code System Code Instructions Start Date End Date Status Dosage Alprazolam [facility] [address]-67 0.5 MG TAKE ONE TABLET BY MOUTH THREE TIMES DAILY NEEDED Results No Known Results Summary Purpose [employer] Submission
--- OUTSIDE RECORDS SUMMARY | 2019-01-11 06:32 | XMS REPORT ---
Author Author FRANCI PETERSEN Organization [employer] Address Unknown Phone Unavailable Care Team Providers Care Antique Repairer Name Role Phone FRANCI PETERSEN CP Unavailable Allergies No Known Allergies Problems Problem Type Condition Code Onset Dates Condition Status Problem Major depressive disorder, recurrent episode, moderate 296.32 Active Problem Depressive disorder, not elsewhere classified 311 Active Problem Generalized anxiety disorder 300.02 Active Medications Medication Code System Code Instructions Start Date End Date Status Dosage Alprazolam [facility] 96953560106 0.5 MG TAKE ONE TABLET BY MOUTH THREE TIMES DAILY NEEDED Results No Known Results Summary Purpose [employer] Submission
--- OUTSIDE RECORDS SUMMARY | 2019-01-11 06:33 | XMS REPORT ---
Author Author FRANCI PETERSEN Organization [facility] Address Unknown Care Team Providers Care Mold Injector Name Role Phone SANTOS PETERSENISTIN Unavailable PROBLEMS Type Condition ICD9-CM Code [id number] Code Onset Dates Condition Status SNOMED Code Problem Major depressive disorder, recurrent, moderate F33.1 Active 61822686 Problem Generalized anxiety disorder F41.1 Active 92167469 Problem Depressive disorder, not elsewhere classified 311 Active 21165278 Problem Generalized anxiety disorder 300.02 Active 37886889 Problem Major depressive disorder, recurrent episode, moderate 296.32 Active 59897908 ALLERGIES Substance Reaction Event Type Date Status N.K.D.A. Unknown Non Drug Allergy Sep, Unknown SOCIAL HISTORY No smoking Hx information available PLAN OF CARE Activity Details Follow Up 2 Months Reason: VITAL SIGNS Height 71 in 2016-09-23 Weight 302 lbs 2016-09-23 Heart Rate 92 bpm 2016-09-23 Respiratory Rate 16 2016-09-23 BMI 42.12 kg/m2 2016-09-23 Blood pressure systolic 120 mmHg 2016-09-23 Blood pressure diastolic 80 mmHg 2016-09-23 MEDICATIONS Medication Instructions Dosage Frequency Start Date End Date Duration Status Alprazolam 0.5 MG Orally Three times a day 1 tablet 8h 30 days Active Celexa 20 MG Orally Once a day 1 tablet 24h 30 days Active RESULTS Name Result Date Reference Range URINE DRUG SCREEN (IN HOUSE) 2016-09-23 Lot # [id number] Exp date Control + COCAINE Negative AMPH Negative MTD Negative THC Positive OPIATE Negative BENZO Positive PCP Negative BAR Negative OXY Negative MAMP Negative TCA Negative BUP Negative MDMA Negative UA LONG DIP (IN HOUSE) 2016-09-23 Lot # [id number] Exp date Clarity Slightly Cloudy Color Yellow Odor None GLU Negative ASHLI Negative KET Negative SG >=1.030 BLO Negative pH 6.5 Protein Negative URO 0.2 NIT Negative SUSAN Negative Lot # [id number] Exp date PROCEDURES Procedure Date Ordered Related Diagnosis Body Site DRUG SCREEN NON TLC DEVICES Sep 23, 2016 URINALYSIS, AUTO, W/O SCOPE Sep 23, 2016 Office Visit, Est Pt., Level 3 Sep 23, 2016 IMMUNIZATIONS No Known Immunizations
--- OUTSIDE RECORDS SUMMARY | 2019-01-11 06:33 | XMS REPORT ---
Author Author MONTANA HERNANDEZ [facility] eClinicalWorks Address Unknown Phone Unavailable Care Team Providers Care Sas Programmer Remote Name Role Phone MONTANA HERNANDEZ CP Unavailable Allergies, Adverse Reactions, Alerts Substance Reaction Event Type N.K.D.A. Info Not Available Non Drug Allergy Problems Problem Type Condition Code Onset Dates Condition Status Problem Major depressive disorder, recurrent episode, moderate 296.32 Active Problem Depressive disorder, not elsewhere classified 311 Active Problem Generalized anxiety disorder 300.02 Active Assessment superintendent container terminal use of drug Z79.899 Active Assessment Major depressive disorder, recurrent, moderate F33.1 Active Medications Medication Code System Code Instructions Start Date End Date Status Dosage Celexa [facility] [address]-77 20 MG Orally Once a day Nov 30, 2014 1 tablet Lisinopril [facility] [address]-72 10 MG Orally Once a day 1 tablet Singulair [facility] [address]-11 10 mg Nov 30, 2014 1 Tablet by Oral route 1 time per day for asthma Albuterol [facility] [address]-64 Oct 31, 2013 by inhalation route metformin [facility] 0 500 mg orally 2 times a day Oct 31, 2013 1 Tablet Simvastatin [facility] [address]-79 5 MG Orally Once a day 1 tablet in the evening Claritin [facility] [address]-94 10 mg Nov 30, 2014 1 Tablet by Oral route 1 time per day for allergies Alprazolam [facility] [address]-42 0.5 MG TAKE ONE TABLET BY MOUTH THREE TIMES DAILY NEEDED Procedures Procedure Coding System Code Date DRUG SCREEN NON TLC DEVICES CPT-4 08375 January 27, 2016 Office Visit, Est Pt., Level 4 CPT-4 08739 January 27, 2016 No Charge CPT-4 55626 January 27, 2016 Vital Signs Date/Time: January 27, 2016 Temperature 98.3 F Weight 324.0 lbs Height 71 in BMI 45.18 Index Blood Pressure Diastolic 90 mmHg Blood Pressure Systolic 108 mmHg Cardiac Monitoring Heart Rate 80 bpm Results No Known Results Summary Purpose eClinicalWorks Submission
--- OUTSIDE RECORDS SUMMARY | 2019-01-11 06:34 | XMS REPORT | Continuity of Care Document ---
Author Author [facility] Address Unknown Phone Unavailable Allergies Active Description Code Type Severity Reaction Onset Reported/Identified Relationship to Patient Clinical Status Yes NKANo Known Allergies NKA Miscellaneous Allergy Unknown N/A 06/25/2006 Yes No Known Drug Allergies [id number] Drug Allergy Mild N/A 04/22/2009 Yes morphine [id number] Drug Allergy Unknown NAUSEA 01/10/2019 Medications There is no data. Problems Date Dx Coded Attending Type Code Diagnosis Diagnosed By 07/14/2010 Ot 844.9 07/14/2010 Ot 959.7 07/14/2010 Ot E000.8 07/14/2010 Ot E029.9 07/14/2010 Ot E849.0 07/14/2010 Ot E927.8 12/27/2010 Ot 250.00 12/27/2010 Ot 278.00 12/27/2010 Ot 397.0 12/27/2010 Ot 424.0 12/27/2010 Ot 493.20 12/27/2010 Ot 786.50 12/27/2010 Ot 789.06 12/27/2010 Ot 794.30 12/27/2010 Ot V15.81 12/27/2010 Ot V15.82 12/27/2010 Ot V45.79 12/27/2010 Ot V85.41 05/12/2013 JULIO DOOLEY MD Ot 845.00 SPRAIN OF ANKLE NOS 05/12/2013 JULIO DOOLEY MD Ot 959.7 LOWER LEG INJURY NOS 05/12/2013 JULIO DOOLEY MD Ot E000.8 OTHER EXTERNAL CAUSE STATUS 05/12/2013 JULIO DOOLEY MD Ot E927.0 OVEREXERTION FROM SUDDEN STRENUOUS MOVEM 08/23/2013 LAWRENCE DEJESUS LCPC 296.32 MO DEPRESSIVE RECURRENT MODERATE 08/23/2013 LAWRENCE DEJESUS LCPC 300.02 AN GEN ANXIETY 08/23/2013 THELMA JUAREZ APRN 296.32 MO DEPRESSIVE RECURRENT MODERATE 08/23/2013 THELMA JUAREZ APRN 300.02 AN GEN ANXIETY 08/23/2013 THELMA JUAREZ APRN 296.32 MO DEPRESSIVE RECURRENT MODERATE 08/23/2013 THELMA JUAREZ APRN 300.02 AN GEN ANXIETY 08/23/2013 THELMA JUAREZ APRN 296.32 MO DEPRESSIVE RECURRENT MODERATE 08/23/2013 THELMA JUAREZ APRN 300.02 AN GEN ANXIETY 10/05/2013 JULIO DOOLEY MD Ot 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 10/05/2013 JULIO DOOLEY MD Ot 825.25 FX METATARSAL-CLOSED 10/05/2013 JULIO DOOLEY MD Ot 959.7 LOWER LEG INJURY NOS 10/05/2013 JULIO DOOLEY MD Ot E000.8 OTHER EXTERNAL CAUSE STATUS 10/05/2013 JULIO DOOLEY MD Ot E849.0 ACCIDENT IN HOME 10/05/2013 JULIO DOOLEY MD Ot E888.9 FALL NOS 10/10/2013 JULIO DOOLEY MD Ot 465.9 ACUTE URI NOS 10/10/2013 JULIO DOOLEY MD Ot 786.05 SHORTNESS OF BREATH 10/31/2013 THELMA JUAREZ APRN 311 DEPRESSIVE DISORDER NOS 10/31/2013 THELMA JUAREZ APRN 311 DEPRESSIVE DISORDER NOS 10/31/2013 THELMA JUAREZ APRN 311 DEPRESSIVE DISORDER NOS 07/01/2014 SANCHO MORALES Ot 719.46 JOINT PAIN-L/LEG 05/06/2015 JULI RINALDI DO Ot 782.2 05/27/2015 JULI RINALDI DO Ot 782.2 03/21/2016 JULIO DOOLEY MD Ot E11.9 TYPE 2 DIABETES MELLITUS WITHOUT COMPLIC 03/21/2016 JULIO DOOLEY MD Ot R07.89 OTHER CHEST PAIN 03/21/2016 JULIO DOOLEY MD Ot R10.13 EPIGASTRIC PAIN 03/21/2016 JULIO DOOLEY MD Ot R11.2 NAUSEA WITH VOMITING, UNSPECIFIED 04/06/2017 JULI RINALDI DO Ot 782.2 LOCAL SUPRFICIAL SWELLNG 04/07/2017 GELLENDER DO, JULI Tucker Ot J45.909 UNSPECIFIED ASTHMA, UNCOMPLICATED 04/07/2017 GELLENDER DO, JULI Tucker Ot R07.89 OTHER CHEST PAIN 04/16/2017 GELLENDER DO, JULI Tucker Ot J45.909 UNSPECIFIED ASTHMA, UNCOMPLICATED 04/16/2017 GELLENDER DO, JULI Tucker Ot R07.89 OTHER CHEST PAIN 02/21/2018 GELLENDER DO, JULI Tucker Ot E11.9 TYPE 2 DIABETES MELLITUS WITHOUT COMPLIC 02/21/2018 GELLENDER DO, JULI Tucker Ot E78.5 HYPERLIPIDEMIA, UNSPECIFIED 02/21/2018 GELLENDER DO, JULI Tucker Ot R53.83 OTHER FATIGUE 03/01/2018 GELLENDER DO, JULI Tucker Ot E11.9 TYPE 2 DIABETES MELLITUS WITHOUT COMPLIC 03/01/2018 GELLENDER DO, JULI Tucker Ot E78.5 HYPERLIPIDEMIA, UNSPECIFIED 03/01/2018 GELLENDER DO, JULI Tucker Ot R53.83 OTHER FATIGUE 01/05/2019 GELLENDER DO, JULI Tucker Ot 782.2 LOCAL SUPRFICIAL SWELLNG 01/05/2019 GELLENDER DO, JULI Tucker Ot J45.909 UNSPECIFIED ASTHMA, UNCOMPLICATED 01/05/2019 GELLENDER DO, JULI Tucker Ot R07.89 OTHER CHEST PAIN 01/05/2019 GELLENDER DO, JULI Tucker Ot E11.9 TYPE 2 DIABETES MELLITUS WITHOUT COMPLIC 01/05/2019 GELLENDER DO, JULI Tucker Ot E78.5 HYPERLIPIDEMIA, UNSPECIFIED 01/05/2019 GELLENDER DO, JULI Tucker Ot R53.83 OTHER FATIGUE 01/07/2019 ANNA HOLLEY, YRN Barron Ot E11.9 TYPE 2 DIABETES MELLITUS WITHOUT COMPLIC 01/07/2019 ANNA HOLLEY, YRN Barron Ot F17.290 NICOTINE DEPENDENCE, OTHER TOBACCO PRODU 01/07/2019 ANNA HOLLEY, YRN Barron Ot J45.909 UNSPECIFIED ASTHMA, UNCOMPLICATED 01/07/2019 ANNA HOLLEY, YRN Barron Ot M54.5 LOW BACK PAIN 01/07/2019 ANNA HOLLEY, YRN Barron Ot N13.2 HYDRONEPHROSIS WITH RENAL AND URETERAL C 01/07/2019 ANNA HOLLEY, YRN T Ot R11.2 NAUSEA WITH VOMITING, UNSPECIFIED 01/07/2019 YRN CASTILLO MD, Ot Z90.49 ACQUIRED ABSENCE OF OTHER SPECIFIED PART 01/07/2019 YRN CASTILLO MD, Ot Z90.89 ACQUIRED ABSENCE OF OTHER ORGANS 01/07/2019 YRN CASTILLO MD, Ot Z98.51 TUBAL LIGATION STATUS Procedures Code Description [place] [address] [facility] DIAGNOSTIC EVALUATION 08/23/2013 Results Test Result Range Automated blood complete blood count (hemogram) panel - 04/06/17 11:24 Blood leukocytes automated count (number/volume) 14.6 10*3/uL 4.3-11.0 Blood erythrocytes automated count (number/volume) 4.76 10*6/uL 4.35-5.85 Venous blood hemoglobin measurement (mass/volume) 14.4 g/dL 11.5-16.0 Blood hematocrit (volume fraction) 42 % 35-52 Automated erythrocyte mean corpuscular volume 89 [foz_us] 80-99 Automated erythrocyte mean corpuscular hemoglobin (mass per erythrocyte) 30 pg 25-34 Automated erythrocyte mean corpuscular hemoglobin concentration measurement ( mass/volume) 34 g/dL 32-36 Automated erythrocyte distribution width ratio 13.6 % 10.0-14.5 Automated blood platelet count (count/volume) 249 10*3/uL 130-400 Automated blood platelet mean volume measurement 10.9 [foz_us] 7.4-10.4 Comprehensive metabolic panel - 04/06/17 11:24 Serum or plasma sodium measurement (moles/volume) 140 mmol/L 135-145 Serum or plasma potassium measurement (moles/volume) 4.1 mmol/L 3.6-5.0 Serum or plasma chloride measurement (moles/volume) 107 mmol/L 98-107 Carbon dioxide 25 mmol/L 21-32 Serum or plasma anion gap determination (moles/volume) 8 mmol/L 5-14 Serum or plasma urea nitrogen measurement (mass/volume) 13 mg/dL 7-18 Serum or plasma creatinine measurement (mass/volume) 0.69 mg/dL 0.60-1.30 Serum or plasma urea nitrogen/creatinine mass ratio 19 NRG Serum or plasma creatinine measurement with calculation of estimated glomerular filtration rate > NRG Serum or plasma glucose measurement (mass/volume) 143 mg/dL 70-105 Serum or plasma calcium measurement (mass/volume) 8.9 mg/dL 8.5-10.1 Serum or plasma total bilirubin measurement (mass/volume) 0.4 mg/dL 0.1-1.0 Serum or plasma alkaline phosphatase measurement (enzymatic activity/volume) 84 U/L 40-136 Serum or plasma aspartate aminotransferase measurement (enzymatic activity/ volume) 12 U/L 5-34 Serum or plasma alanine aminotransferase measurement (enzymatic activity/volume ) 12 U/L 0-55 Serum or plasma protein measurement (mass/volume) 6.7 g/dL 6.4-8.2 Serum or plasma albumin measurement (mass/volume) 3.9 g/dL 3.2-4.5 Serum or plasma troponin i.cardiac measurement (mass/volume) - 04/06/17 11:24 Serum or plasma troponin i.cardiac measurement (mass/volume) < ng/ mL <0.30 Lipid 1996 panel - 04/06/17 11:24 Serum or plasma triglyceride measurement (mass/volume) 208 mg/dL <150 Serum or plasma cholesterol measurement (mass/volume) 194 mg/dL < 200 Serum or plasma cholesterol in HDL measurement (mass/volume) 34 mg/ dL 40-60 Cholesterol in LDL [mass/volume] in serum or plasma by direct assay 119 mg/dL 1-129 Serum or plasma cholesterol in VLDL measurement (mass/volume) 42 mg/ dL 5-40 Hemoglobin A1c - 04/06/17 11:24 Hemoglobin A1c 6.3 % 4.5-6.2 Comprehensive metabolic panel - 02/18/18 06:43 Serum or plasma sodium measurement (moles/volume) 141 mmol/L 135-145 Serum or plasma potassium measurement (moles/volume) 4.0 mmol/L 3.6-5.0 Serum or plasma chloride measurement (moles/volume) 107 mmol/L 98-107 Carbon dioxide 22 mmol/L 21-32 Serum or plasma anion gap determination (moles/volume) 12 mmol/L 5-14 Serum or plasma urea nitrogen measurement (mass/volume) 11 mg/dL 7-18 Serum or plasma creatinine measurement (mass/volume) 0.71 mg/dL 0.60-1.30 Serum or plasma urea nitrogen/creatinine mass ratio 15 NRG Serum or plasma creatinine measurement with calculation of estimated glomerular filtration rate > NRG Serum or plasma glucose measurement (mass/volume) 120 mg/dL 70-105 Serum or plasma calcium measurement (mass/volume) 8.8 mg/dL 8.5-10.1 Serum or plasma total bilirubin measurement (mass/volume) 0.4 mg/dL 0.1-1.0 Serum or plasma alkaline phosphatase measurement (enzymatic activity/volume) 67 U/L 40-136 Serum or plasma aspartate aminotransferase measurement (enzymatic activity/ volume) 14 U/L 5-34 Serum or plasma alanine aminotransferase measurement (enzymatic activity/volume ) 17 U/L 0-55 Serum or plasma protein measurement (mass/volume) 6.4 g/dL 6.4-8.2 Serum or plasma albumin measurement (mass/volume) 3.8 g/dL 3.2-4.5 Lipid 1996 panel - 02/18/18 06:43 Serum or plasma triglyceride measurement (mass/volume) 187 mg/dL <150 Serum or plasma cholesterol measurement (mass/volume) 188 mg/dL < 200 Serum or plasma cholesterol in HDL measurement (mass/volume) 39 mg/ dL 40-60 Cholesterol in LDL [mass/volume] in serum or plasma by direct assay 113 mg/dL 1-129 Serum or plasma cholesterol in VLDL measurement (mass/volume) 37 mg/ dL 5-40 THYROID STIMULATING HORMONE - 02/18/18 06:43 THYROID STIMULATING HORMONE 3.01 u[iU]/mL 0.35-4.94 Hemoglobin A1c - 02/18/18 06:43 Blood hemoglobin A1C measurement (mass/volume) 7.9 % 4.0- 5.6 MEAN BLOOD GLUCOSE 180 % <=126 Complete blood count (CBC) with automated white blood cell (WBC) differential - 01/05/19 13:53 Blood leukocytes automated count (number/volume) 17.1 10*3/uL 4.3-11.0 Blood erythrocytes automated count (number/volume) 4.85 10*6/uL 4.35-5.85 Venous blood hemoglobin measurement (mass/volume) 14.8 g/dL 11.5-16.0 Blood hematocrit (volume fraction) 43 % 35-52 Automated erythrocyte mean corpuscular volume 89 [foz_us] 80-99 Automated erythrocyte mean corpuscular hemoglobin (mass per erythrocyte) 31 pg 25-34 Automated erythrocyte mean corpuscular hemoglobin concentration measurement ( mass/volume) 34 g/dL 32-36 Automated erythrocyte distribution width ratio 14.0 % 10.0-14.5 Automated blood platelet count (count/volume) 299 10*3/uL 130-400 Automated blood platelet mean volume measurement 11.8 [foz_us] 7.4-10.4 Automated blood neutrophils/100 leukocytes 80 % 42-75 Automated blood lymphocytes/100 leukocytes 11 % 12-44 Blood monocytes/100 leukocytes 8 % 0-12 Automated blood eosinophils/100 leukocytes 1 % 0-10 Automated blood basophils/100 leukocytes 1 % 0-10 Blood neutrophils automated count (number/volume) 13.7 10*3 1.8-7.8 Blood lymphocytes automated count (number/volume) 1.8 10*3 1.0-4.0 Blood monocytes automated count (number/volume) 1.3 10*3 0.0-1.0 Automated eosinophil count 0.2 10*3/uL 0.0-0.3 Automated blood basophil count (count/volume) 0.1 10*3/uL 0.0-0.1 Comprehensive metabolic panel - 01/05/19 13:53 Serum or plasma sodium measurement (moles/volume) 138 mmol/L 135-145 Serum or plasma potassium measurement (moles/volume) 4.4 mmol/L 3.6-5.0 Serum or plasma chloride measurement (moles/volume) 106 mmol/L 98-107 Carbon dioxide 22 mmol/L 21-32 Serum or plasma anion gap determination (moles/volume) 10 mmol/L 5-14 Serum or plasma urea nitrogen measurement (mass/volume) 16 mg/dL 7-18 Serum or plasma creatinine measurement (mass/volume) 0.94 mg/dL 0.60-1.30 Serum or plasma urea nitrogen/creatinine mass ratio 17 NRG Serum or plasma creatinine measurement with calculation of estimated glomerular filtration rate > NRG Serum or plasma glucose measurement (mass/volume) 217 mg/dL 70-105 Serum or plasma calcium measurement (mass/volume) 9.8 mg/dL 8.5-10.1 Serum or plasma total bilirubin measurement (mass/volume) 0.7 mg/dL 0.1-1.0 Serum or plasma alkaline phosphatase measurement (enzymatic activity/volume) 100 U/L 40-136 Serum or plasma aspartate aminotransferase measurement (enzymatic activity/ volume) 22 U/L 5-34 Serum or plasma alanine aminotransferase measurement (enzymatic activity/volume ) 21 U/L 0-55 Serum or plasma protein measurement (mass/volume) 7.6 g/dL 6.4-8.2 Serum or plasma albumin measurement (mass/volume) 4.4 g/dL 3.2-4.5 CALCIUM CORRECTED 9.5 mg/dL 8.5-10.1 Blood manual differential performed detection - 01/05/19 13:53 Blood monocytes/100 leukocytes 7 % NRG Manual blood segmented neutrophils/100 leukocytes 83 % NRG Blood band neutrophils/100 leukocytes 0 % NRG Manual blood lymphocytes/100 leukocytes 10 % NRG Manual eosinophils/100 leukocytes in nose 0 % NRG Manual blood basophils/100 leukocytes 0 % NRG Blood erythrocyte morphology finding identification NORMAL NRG Complete urinalysis with reflex to culture - 01/05/19 13:55 Urine color determination YELLOW NRG Urine clarity determination CLEAR NRG Urine pH measurement by test strip 5 5-9 Specific gravity of urine by test strip 1.030 1.016- 1.022 Urine protein assay by test strip, semi-quantitative 3+ NEGATIVE Urine glucose detection by automated test strip 1+ NEGATIVE Erythrocytes detection in urine sediment by light microscopy 5+ NEGATIVE Urine ketones detection by automated test strip 1+ NEGATIVE Urine nitrite detection by test strip NEGATIVE NEGATIVE Urine total bilirubin detection by test strip 1+ NEGATIVE Urine urobilinogen measurement by automated test strip (mass/volume) 4 mg/dL NORMAL Urine leukocyte esterase detection by dipstick 1+ NEGATIVE Automated urine sediment erythrocyte count by microscopy (number/high power field) [HPF] NRG Automated urine sediment leukocyte count by microscopy (number/high power field ) RARE NRG Bacteria detection in urine sediment by light microscopy NEGATIVE NRG Squamous epithelial cells detection in urine sediment by light microscopy 0-2 NRG Crystals detection in urine sediment by light microscopy NONE NRG Casts detection in urine sediment by light microscopy NONE NRG Mucus detection in urine sediment by light microscopy NEGATIVE NRG Complete urinalysis with reflex to culture NO NRG Whole blood basic metabolic panel - 01/10/19 12:00 Serum or plasma sodium measurement (moles/volume) 142 mmol/L 135-145 Serum or plasma potassium measurement (moles/volume) 3.8 mmol/L 3.6-5.0 Serum or plasma chloride measurement (moles/volume) 107 mmol/L 98-107 Carbon dioxide 24 mmol/L 21-32 Serum or plasma anion gap determination (moles/volume) 11 mmol/L 5-14 Serum or plasma urea nitrogen measurement (mass/volume) 11 mg/dL 7-18 Serum or plasma creatinine measurement (mass/volume) 0.65 mg/dL 0.60-1.30 Serum or plasma urea nitrogen/creatinine mass ratio 17 NRG Serum or plasma creatinine measurement with calculation of estimated glomerular filtration rate > NRG Serum or plasma glucose measurement (mass/volume) 134 mg/dL 70-105 Serum or plasma calcium measurement (mass/volume) 9.0 mg/dL 8.5-10.1 Serum or plasma uric acid measurement (mass/volume) - 01/10/19 12:00 Serum or plasma uric acid measurement (mass/volume) 5.4 mg/dL 2.6-7.2 Serum or plasma phosphate measurement (mass/volume) - 01/10/19 12:00 Serum or plasma phosphate measurement (mass/volume) 3.3 mg/dL 2.3-4.7 Urine beta human chorionic gonadotropin (hCG) measurement - 01/10/19 12:15 Urine beta human chorionic gonadotropin (hCG) measurement NEGATIVE NEGATIVE Encounters ACCT No. Visit Date/Time Discharge Status Pt. Type Provider Facility Loc./Unit Complaint [id number] 06/27/2014 14:42:00 06/27/2014 23:59:59 CLS Outpatient LARRY ANDERSON THELMA DAVID [id number] 03/14/2014 14:56:00 03/14/2014 23:59:59 CLS Outpatient LARRY ANDERSON THELMA DAVID [id number] 10/31/2013 14:40:00 10/31/2013 23:59:59 CLS Outpatient LARRY ANDERSON THELMA DAVID [id number] 08/23/2013 13:44:00 08/23/2013 23:59:59 CLS Outpatient LAWRENCE DEJESUS LCPC [id number] 10/25/2017 10:00:00 10/25/2017 23:59:59 CLS Outpatient LUCI PRINCE [facility] DENTAL [id number] 01/10/2019 11:32:00 01/10/2019 12:20:00 DIS Outpatient ALEJA BIRMINGHAM MD [facility] PREOP RIGHT URETERAL STONE [id number] 01/05/2019 13:36:00 01/05/2019 15:50:00 DIS Outpatient YRN CASTILLO MD [facility] ER LOWER BACK PAIN [id number] 02/18/2018 06:32:00 02/18/2018 23:59:59 CLS Outpatient JULI RINALDI DO [facility] LAB DIABETES E11.9, HYPERLIPIDEMIA E78.5 [id number] 04/06/2017 11:12:00 04/06/2017 23:59:59 CLS Outpatient JULI RINALDI DO [facility] LAB CHEST DISCOMFORT [id number] 03/21/2016 01:38:00 03/21/2016 02:49:00 DIS Emergency JULIO DOOLEY MD [facility] ER VOMITING LOOKS LIKE BLOOD IN IT,DIZZY [id number] 05/03/2015 13:21:00 05/03/2015 23:59:59 CLS Outpatient JULI RINALDI DO [facility] RAD MASS LEFT ARM PIN [id number] 07/01/2014 12:08:00 07/01/2014 13:01:00 DIS Emergency SANCHO MORALES [facility] ER R KNEE PAIN [id number] 10/10/2013 10:07:00 10/10/2013 11:24:00 DIS Emergency JULIO DOOLEY MD [facility] ER SOA [id number] 10/05/2013 11:21:00 10/05/2013 14:00:00 DIS Emergency JULIO DOOLEY MD [facility] ER FALL,LEFT SIDE FACIAL PAIN [id number] 05/12/2013 00:19:00 05/12/2013 02:37:00 FABY Emergency JULIO DOOLEY MD [facility] ER RT ANKLE PAIN [id number] 01/11/2019 09:00:00 ALEJA Vargas MD [facility] RIGHT URETERAL STONE [id number] 01/10/2019 11:43:00 Document Registration [id number] 01/10/2019 08:14:00 ACT Outpatient JULI RINALDI DO [facility] RAD RIGHT KIDNEY STONE [id number] 01/09/2019 12:19:00 ACT Outpatient ANNA HOLLEY, YRN Grier [facility] RAD STONES [id number] 05/03/2015 13:21:00 Document Registration [id number] 05/03/2015 13:21:00 Document Registration [id number] 07/14/2010 05:45:00 Document Registration
[2019-01-11] MEDS ORDERED: cefTRIAXone 1,000 MG IV (ROCEPHIN) VIAL ONE (06:40)
[2019-01-11 06:45] VITALS: BP 161/102
[2019-01-11] MEDS ORDERED: LACTATED RINGERS 1,000 ML IV PRN (06:46)
[2019-01-11] MEDS ORDERED: cefTRIAXone FOR IV USE 1,000 MG in WATER (STERILE) FOR INJECTION 10 ML IV ONE (07:00)
--- NOTE | 2019-01-11 07:11 | Progress Note-Pre Operative ---
Pre-Operative Progress Note H&P Reviewed The H&P was reviewed, patient examined and no changes noted. Date Seen by Provider: Jan 11, 2019 Time Seen by Provider: 07:11 Date H&P Reviewed: Jan 11, 2019 Time H&P Reviewed: 07:11 Pre-Operative Diagnosis: RT DISTAL URETERAL STONES ALEJA BIRMINGHAM MD Jan 11, 2019 07:11
--- NOTE | 2019-01-11 07:20 | Diagnostic Imaging Report ---
INDICATION: Right ureteral stone. Preop. Comparison with 01/10/2019. FINDINGS: Calcifications overlying the pelvis both on the right and left again noted. The calcification likely in the distal right ureter appears unchanged in position. No calculi seen overlying the kidneys. IMPRESSION: Persistent pelvic calculi without change in position since previous exam. Dictated by: Dictated on workstation # [id number]
[2019-01-11] MEDS ORDERED: ROCURONIUM 10 MG/ML 5 ML SYRINGE IV ONE (07:28)
[2019-01-11] MEDS ORDERED: MIDAZOLAM 2 MG/2 ML (VERSED) VIAL ONE (07:28)
[2019-01-11] MEDS ORDERED: proPOfol 200 MG/20 ML (DIPRIVAN) VIAL IV ONE (07:28)
[2019-01-11] MEDS ORDERED: fentaNYL INJECTION 100 MCG/2 ML AMP ONE ×2 (07:28→08:15)
[2019-01-11] MEDS ORDERED: LIDOCAINE PF 2% 5 ML (XYLOCAINE) VIAL ONE (07:28)
[2019-01-11] MEDS ORDERED: SEVOFLURANE (ULTANE) 15 ML INHAL SOLN ONE (07:28)
[2019-01-11] MEDS ORDERED: ONDANSETRON 4 MG/2 ML (SDV) Z0FRAN ONE (07:28)
[2019-01-11] MEDS ORDERED: GLYCOPYRROLATE 0.2 MG/ML (ROBINUL) 2 ML VIAL ONE (08:05)
[2019-01-11] MEDS ORDERED: NEOSTIGMINE 1 MG/ML 5 ML SYRINGE ONE (08:05)
--- NOTE | 2019-01-11 08:23 | Progress Note-Post Operative ---
Post-Operative Progess Note Surgeon (s)/Electric Plater (s) Surgeon ALEJA BIRMINGHAM MD Electric Plater: NONE Pre-Operative Diagnosis RT DISTAL URETERAL STONES Post-Operative Diagnosis SAME Procedure & Operative Findings Date of Procedure 01/11/19 Procedure Performed/Findings RT URETEROSCOPY WITH STONE LITHOTRIPSY Anesthesia Type GENERAL Estimated Blood Loss Estimated blood loss (mL): NONE Specimens/Packing Specimens Removed NONE Packing: NONE ALEJA BIRMINGHAM MD Jan 11, 2019 08:23
--- NOTE | 2019-01-11 08:25 | Discharge Inst-Urology ---
Discharge Inst-Urology Discharge Medications New, Converted, or Re-newed RX: RX on Chart Patient Instructions/Follow Up Plan Please make appointment to been seen in office in 2 weeks. Patient to strain urine, collect, save, and bring fragments to office visit Increase oral fluids for 48 hours and then as needed. Diet and Activity as tolerated. If questions or concerns contact your physician Or seek help at emergency department. ALEJA BIRMINGHAM MD Jan 11, 2019 08:25
[2019-01-11] MEDS ORDERED: ONDANSETRON 4 MG/2 ML (SDV) Z0FRAN IVP PRN (08:30)
[2019-01-11] MEDS ORDERED: fentaNYL INJECTION 100 MCG/2 ML AMP IVP ONE (08:30)
[2019-01-11] MEDS ORDERED: TRAM50TA2 PO (08:34)
[2019-01-11] MEDS ORDERED: PHEN-640 PO (08:34)
[2019-01-11] MEDS ORDERED: NITR-65 PO (08:34)
[2019-01-11] MEDS ORDERED: TAMS0.4C98 PO (08:34)
[2019-01-11 09:15] VITALS: BP 136/95
--- NOTE | 2019-01-11 09:28 | Anesthesia-General Post-Op ---
General Patient Condition Mental Status/LOC: Same as Preop Cardiovascular: Satisfactory Nausea/Vomiting: Absent Respiratory: Satisfactory Pain: Controlled Complications: Absent Post Op Complications Complications None Follow Up Care/Instructions Patient Instructions None needed. Anesthesia/Patient Condition Patient Condition Patient is doing well, no complaints, stable vital signs, no apparent adverse anesthesia problems. No complications reported per nursing. SKYLA WOLF CRNA Jan 11, 2019 09:28
[2019-01-11 09:45] VITALS: BP 143/92
[2019-01-11 09:55] VITALS: BP 143/92
--- NOTE | 2019-01-11 10:30 | OPERATIVE REPORT ---
DATE OF SERVICE: 01/11/2019 PREOPERATIVE DIAGNOSIS: Right distal ureteral stone. POSTOPERATIVE DIAGNOSIS: Right distal ureteral stone. OPERATION PERFORMED: Right ureteroscopy with stone lithotripsy. SURGEON: Rafael Birmingham MD. ANESTHESIA: General. COMPLICATIONS: None. DESCRIPTION OF PROCEDURE: Under satisfactory general anesthesia, the patient in lithotomy position, genitalia were prepped and draped in usual sterile fashion. Cystoscope was introduced and the bladder was noticed. The patient had vaginal prolapse cystorectocele type. The inspection of the bladder was normal except for sluggish efflux from the right ureteral orifice. Using the foroblique lens, I dilated the right ureteral orifice intramural portion to the level of the stone, guided fluoroscopically as well to accommodate a 6.9 Maldivian semi-rigid ureteroscope. The stone visualized. It was shaped and spiky. I went ahead and used the lithoclast first at the power of 5 in order not to lose the stone proximally and then finishing up with power of 12. The stone was fragmented completely and some of the fragments were flowing into the bladder. I went beyond the stone. There was no further stone or fragment, needing blasting. I removed ureteroscope, reinserted the cystoscope to empty the bladder. The patient tolerated the procedure and anesthesia well and was sent to recovery room in stable condition. PLAN: We will see her back in 2 weeks. We will plan stone prevention. Job ID: [id number] DocumentID: [id number] Dictated Date: 01/11/2019 08:27:07 Complaints Coordinator Date: 01/11/2019 10:29:47 Dictated By: RAFAEL BIRMINGHAM MD
== END 2019-01-11 10:05 | disposition home or self-care (01) ==
LOC: SDC 06:25
PROVIDERS: ATTEND Urology
DX: N20.1 Calculus of ureter (principal); R31.9 Hematuria, unspecified; E11.9 Type 2 diabetes mellitus without complications; I10 Essential (primary) hypertension; M19.91 Primary osteoarthritis, unspecified site; J45.909 Unspecified asthma, uncomplicated; Z79.84 Long term (current) use of oral hypoglycemic drugs; Z79.899 Other long term (current) drug therapy; F17.290 Nicotine dependence, other tobacco product, uncomplicated
CPT/HCPCS: 74018; 82962

== ENCOUNTER → 2020-03-22 | Outpatient (CLI) | payer MEDICAID ==
[~2020-03-22] MED LIST changes: +ACHD5005 PO; -HYDR-3812 PO; +NITR-65 PO; +PHEN-640 PO; +TMSL.4C PO; +TRM50T PO
== END ==
LOC: LAB 06:45
PROVIDERS: ATTEND Family Medicine
DX: E11.9 Type 2 diabetes mellitus without complications (principal); I10 Essential (primary) hypertension
CPT/HCPCS: 36415; 82947; 83036

== ENCOUNTER → 2020-04-19 | Outpatient (CLI) | payer MEDICAID ==
[2020-04-19 07:04] LABS: BASOPHILS # (AUTO) 0.1 10^3/uL (0.0-0.1); BASOPHILS % (AUTO) 0 % (0-10); EOSINOPHILS # (AUTO) 0.3 10^3/uL (0.0-0.3); EOSINOPHILS % (AUTO) 2 % (0-10); HEMATOCRIT 40 % (35-52); HEMOGLOBIN 13.6 G/DL (11.5-16.0); LYMPHOCYTES % (AUTO) 23 % (12-44); MEAN CORPUSCULAR HEMOGLOBIN 31 PG (25-34); MEAN CORPUSCULAR HGB CONC 34 G/DL (32-36); MEAN CORPUSCULAR VOLUME 90 FL (80-99); MONOCYTES % (AUTO) 7 % (0-12); NEUTROPHILS # (AUTO) 8.8 X 10^3 (1.8-7.8); NEUTROPHILS % (AUTO) 67 % (42-75); PLATELET COUNT 247 10^3/uL (130-400); RED CELL DISTRIBUTION WIDTH 13.4 % (10.0-14.5); WHITE BLOOD COUNT 13.2 10^3/uL (4.3-11.0)
[2020-04-19 07:07] LABS: CHLORIDE 107 MMOL/L (98-107); POTASSIUM 3.8 MMOL/L (3.6-5.0); SODIUM 140 MMOL/L (135-145)
[2020-04-19 07:08] LABS: CALCIUM 8.8 MG/DL (8.5-10.1)
[2020-04-19 07:09] LABS: GLUCOSE 151 MG/DL (70-105)
[2020-04-19 07:10] LABS: CARBON DIOXIDE 22 MMOL/L (21-32)
[2020-04-19 07:13] LABS: CREATININE SERUM 0.77 MG/DL (0.60-1.30); GFR ESTIMATED > 60
[2020-04-19 07:14] LABS: BUN/CREATININE RATIO 16
== END ==
LOC: LAB 06:50
PROVIDERS: ATTEND Family Medicine
DX: Z01.89 Encounter for other specified special examinations (principal)
CPT/HCPCS: 36415; 80048; 84443; 85025

== ENCOUNTER → 2020-05-02 | Outpatient (CLI) | payer MEDICAID | LOC: LAB 10:34 | PROVIDERS: ATTEND Family Medicine | DX: D72.829 Elevated white blood cell count, unspecified (principal); B96.20 Unspecified Escherichia coli [E. coli] as the cause of diseases classified elsewhere | CPT/HCPCS: 87077; 87088; 87186 ==

== ENCOUNTER → 2021-04-08 | Outpatient (CLI) | payer MEDICAID ==
[~2021-04-08] MED LIST changes: -LISI10TA2 PO; +LISI10TA25 PO
[2021-04-08 10:12] LABS: HEMATOCRIT 41 % (35-52); HEMOGLOBIN 13.6 g/dL (11.5-16.0); MEAN CORPUSCULAR HEMOGLOBIN 31 pg (25-34); MEAN CORPUSCULAR HGB CONC 33 g/dL (32-36); MEAN CORPUSCULAR VOLUME 93 fL (80-99); MEAN PLATELET VOLUME 10.6 fL (9.0-12.2); PLATELET COUNT 264 10^3/uL (130-400); WHITE BLOOD COUNT 11.2 10^3/uL (4.3-11.0)
[2021-04-08 10:26] LABS: BILIRUBIN,URINE NEGATIVE (NEGATIVE); CLARITY,URINE SL CLOUDY; COLOR,URINE YELLOW; GLUCOSE, URINE (UA) NEGATIVE (NEGATIVE); KETONES,URINE NEGATIVE (NEGATIVE); LEUKOCYTE ESTERASE ,URINE 1+ (NEGATIVE); NITRITE,URINE POSITIVE (NEGATIVE); PROTEIN,URINE NEGATIVE (NEGATIVE)
[2021-04-08 10:35] LABS: BACTERIA,URINE LARGE /HPF; WBC,URINE 25-50 /HPF
[2021-04-08 10:38] LABS: ALANINE AMINOTRANSFERASE 17 U/L (0-55); ALBUMIN 3.7 GM/DL (3.2-4.5); ALKALINE PHOSPHATASE 82 U/L (40-136); BILIRUBIN,TOTAL 0.3 MG/DL (0.1-1.0); BUN/CREATININE RATIO 13; CALCIUM 9.2 MG/DL (8.5-10.1); CARBON DIOXIDE 23 MMOL/L (21-32); CHLORIDE 108 MMOL/L (98-107); CHOLESTEROL 185 MG/DL (< 200); CREATININE SERUM 0.71 MG/DL (0.60-1.30); GFR ESTIMATED > 60; GLUCOSE 179 MG/DL (70-105); HDL CHOLESTEROL 36 MG/DL (40-60); POTASSIUM 4.1 MMOL/L (3.6-5.0); SODIUM 139 MMOL/L (135-145); TOTAL PROTEIN 6.4 GM/DL (6.4-8.2); TRIGLYCERIDES 131 MG/DL (<150); VLDL CHOLESTEROL 26 MG/DL (5-40)
== END ==
LOC: LAB 09:54
PROVIDERS: ATTEND Family Medicine
DX: E11.9 Type 2 diabetes mellitus without complications (principal)
CPT/HCPCS: 36415; 80053; 80061; 81000; 83036; 85027; 87077; 87088; 87186

== ENCOUNTER → 2022-09-11 | Outpatient (CLI) | payer MEDICAID ==
[~2022-09-11] MED LIST changes: +ALBU8.5H6 IH; -RT-ALBUINH IH
== END ==
LOC: LAB 12:28
PROVIDERS: ATTEND Family Medicine
DX: K92.1 Melena (principal)
CPT/HCPCS: 82274